=== PATIENT | male | born 1975 | race American Indian/Alaskan Native ===

== ENCOUNTER 2021-03-07 18:05 | Emergency (ER) | payer SELFPAY ==
[2021-03-07] MEDS ORDERED: CYCLOBENZAPRINE 10 MG TAB PO ONE (19:12)
[2021-03-07] MEDS ORDERED: IBUPROFEN 600 MG TAB PO ONE (19:12)
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
[2021-03-07 19:56] VITALS: BP 124/79
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
== END 2021-03-07 20:50 | disposition home or self-care (01) ==
LOC: ED 18:05
DX: M54.50 Low back pain, unspecified (principal); R07.89 Other chest pain; R51.9 Headache, unspecified; V89.2XXA Person injured in unspecified motor-vehicle accident, traffic, initial encounter; Y93.89 Activity, other specified; Y92.488 Other paved roadways as the place of occurrence of the external cause; Y99.8 Other external cause status
CPT/HCPCS: 71046; 72100; 99283